=== PATIENT | female | born 1985 | race Caucasian/White ===

== ENCOUNTER 2018-04-14 22:46 | Emergency (ER) | payer OTHER ==
[~2018-04-14] VITALS: Ht 162.6 cm; Wt 77.1 kg
[~2018-04-14 22:46] MED LIST: ALBUTEROL2.5 MG/0.1 INH; CLARITIN10 MG PO; LORTAB 5 MG/5001 TA1 OR; PREDNISONE 20 M20 MG PO; PROAIR HFA8.5 GM INH; ZOFRAN ODT4 MG PO
[2018-04-14 23:42] VITALS: BP 111/88
== END 2018-04-14 23:43 | disposition home or self-care (01) ==
LOC: ER 22:46
DX: S93.491A Sprain of other ligament of right ankle, initial encounter (principal); J45.909 Unspecified asthma, uncomplicated; Z88.8 Allergy status to other drugs, medicaments and biological substances; X50.1XXA Overexertion from prolonged static or awkward postures, initial encounter; Y92.89 Other specified places as the place of occurrence of the external cause; Y93.01 Activity, walking, marching and hiking; Y99.8 Other external cause status

== ENCOUNTER 2019-03-09 15:25 | Inpatient (IN) | payer OTHER ==
[~2019-03-09] VITALS: Ht 162.6 cm; Wt 81.6 kg
[2019-03-09 15:30] VITALS: BP 142/91
[2019-03-09] MEDS ORDERED: XARELTO15 MG PO (15:34)
[2019-03-09 15:59] LABS: ABSOLUTE NEUTROPHILS 4.2 thou/uL (1.4-8.2); BASOPHILS 0.8 % (0.0-2.0); EOSINOPHILS 2.8 % (0.0-3.0); HEMATOCRIT 34.6 % (37.0-47.0); HEMOGLOBIN 11.5 gm/dL (12.0-15.0); LYMPHOCYTES 19.9 % (24.0-44.0); MCH 28.9 pg (26.0-34.0); MCHC 33.1 g/dL (28.0-37.0); MCV 87.3 fL (80.0-100.0); MONOCYTES 5.9 % (1.0-8.0); PLATELET COUNT 296 thou/uL (150-400); POLYS 70.6 % (36.0-66.0); RBC 3.96 mil/uL (4.20-5.00); RDW 14.9 % (10.5-14.5)
[2019-03-09 16:17] LABS: ANION GAP 9 mmol/L (7-16); BUN 10 mg/dL (7-18); CALCIUM 9.4 mg/dL (8.5-10.1); CHLORIDE 105 mmol/L (98-107); CO2 30 mmol/L (21-32); CREATININE 0.8 mg/dL (0.6-1.0); GLUCOSE 124 mg/dL (74-106); POTASSIUM 3.5 mmol/L (3.5-5.1); SODIUM 144 mmol/L (136-145)
[2019-03-09 16:27] LABS: ALBUMIN 3.6 g/dL (3.4-5.0); SGOT 15 U/L (15-37); SGPT 23 U/L (30-65); TOTAL BILIRUBIN 0.5 mg/dL (<0.1-1.0); TOTAL PROTEIN 7.3 g/dL (6.4-8.2); TROPONIN-I <0.06 ng/mL (<0.06)
[2019-03-09 17:32] LABS: INR 1.1
[2019-03-09 17:50] VITALS: BP 116/74
[2019-03-09 18:17] VITALS: BP 118/79
[2019-03-09 18:43] VITALS: BP 129/75
[2019-03-09] MEDS ORDERED: COLACE100 MG PO (20:37)
[2019-03-09] MEDS ORDERED: LORCET 5-325 M1 EACH PO (20:38)
--- NOTE | 2019-03-09 21:56 | EKG ---
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 : 1985 Requested By: Sandra Lim Order Number: [id number] MD: Jamir Sanchez Measurements Intervals [place] Rate: 100 P: 21 NH: 138 QRS: 16 QRSD: 90 T: 34 QT: 345 QTc: 445 Interpretive Statements Sinus tachycardia RSR' in V1 or V2, probably normal variant No previous ECG available for comparison Electronically Signed On 03-09-2019 21:56:14 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
[2019-03-09 23:53] VITALS: BP 117/67
[2019-03-10 05:31] VITALS: BP 101/59
[2019-03-10 07:18] VITALS: BP 100/58
--- NOTE | 2019-03-10 07:31 | NUR ---
PT ARRIVED TO UNIT AT 1900, PLACED ON TELEMETRY AND VS OBTAINED; IVF AND HEPARIN DRIP INFUSING. ADMISSION AND ASSESSMENT COMPLETED. PT DENIED CHEST PAIN OR SOB OVERNIGHT, SATTING WELL ON RA; DENIED PAIN OR TENDERNESS IN LEFT CALF AT SITE OF DVT. PT REPORTS HAVING A TUMMY TUCK AND BREAST REDUCTION W/ LIFT ON THE ; INCISION SITES ARE CARMEN, SUTURES PRESENT, NO ABNORMAL SWELLING, REDNESS, OR DISCHARGE NOTED. 2330 APTT DRAW CRITICAL HIGH, NOTIFIED OVERNIGHT FIRST COAT OPERATOR, AND REDUCED DRIP PER HEPARIN FLOWSHEET/PROTOCOL; REDRAW OF LAB AT 0600, RESULT WAS LOW; CO-SIGNED BOLUS AND INCREASE OF RATE PER PROTOCOL WITH DAY RN. NO OTHER CONCERNS, SHIFT REPORT GIVEN AT 0700.
[2019-03-10 15:10] VITALS: BP 120/62
--- NOTE | 2019-03-10 18:14 | NUR ---
ASSUMED PATIENT CARE AT 0700. ON HEPARIN GTT. C/O LLQ PAIN 06/17. WILL CHECK UA PER ORDER. NO SOB NOTED. SLOWLY TOWARDS POC GOALS.
[2019-03-10 19:28] LABS: URINE BILIRUBIN NEGATIVE (Negative); URINE BLOOD NEGATIVE (Negative); URINE CLARITY CLEAR; URINE COLOR YELLOW; URINE GLUCOSE-RANDOM* NEGATIVE (Negative); URINE KETONES NEGATIVE (Negative); URINE LEUKOCYTES-REFLEX NEGATIVE (Negative); URINE NITRITE-REFLEX NEGATIVE (Negative); URINE PROTEIN (DIPSTICK) NEGATIVE (Negative); URINE SPECIFIC GRAVITY <= 1.005 (1.005-1.035); URINE UROBILINOGEN 0.2 E.U./dl (0.2-1.0)
[2019-03-10 19:30] VITALS: BP 113/72
[2019-03-10 19:36] LABS: BACTERIA-REFLEX None Seen /HPF (None Seen); CASTS None Seen /LPF (None Seen); CRYSTALS None Seen /LPF (None Seen); SQUAMOUS 0-3 Few /LPF (0-3); URINE RBC None Seen /HPF (0-2); URINE WBC-REFLEX None Seen /HPF (0-5)
--- NOTE | 2019-03-11 03:38 | NUR ---
C/O mid abdominal pain that started yesterday she described as stabbing/sharp pain which is better now but it hurts more when she moves.Urine specimen sent to lab per order. Bilateral breast incision and abdominal incision approximated well and open to air. Cont. on heparin gtt. with no active bleeding noted and being titrated per protocol. Will continue to monitor.
[2019-03-11 04:36] VITALS: BP 107/61
[2019-03-11 07:36] VITALS: BP 109/59
--- NOTE | 2019-03-11 09:45 | NUR ---
Nutrition: Seen due to consult for diet instructions, re: recent surgery, developed clots. Admit: DVT, bilateral pulmonary emboli. On heparin currently. Met with pt at beside. She reports mention of possible warfarin, but not certain at this point if another anticoagulant med will be chosen. RD provided full extensive education on vitamin K food/drug interaction if warfarin is chosen. Pt likes raw spinach, brussel sprouts. RD explained role of med vs vitamin K and higher food sources of. Discussed general goal to limit to ~1/2 c/day or < 100 mcg/day. Pt consumes these sources regularly. Encouraged if consuming to be very mindful and consistent in PO intake and to not make large changes in amounts consumed. Pt verbalized understanding. Low risk otherwise.
--- NOTE | 2019-03-11 12:29 | NUR ---
PT STATES SHE HAS PAIN TO LLQ OF ABDOMEN...NPO FOR ABDOMINAL ULTRASOUND...
--- NOTE | 2019-03-11 12:50 | 2DMMODE ---
[facility] [address] [place] [address] 2 D/M-MODE ECHOCARDIOGRAM Name: CHARLIABHAY DANYEL Room #: 350-P ADM IN M.R.#: [id number] Admission: 03/09/19 Attend Phys: Jazmine Marion Discharge: Date of : 81 Report #: [id number] THIS REPORT FOR: //name// APPROVED REPORT Study performed: 03/11/2019 11:38:56 EXAM: Comprehensive 2D, Doppler, and color-flow Echocardiogram Patient Location: Bedside Room #: 350 Status: routine BSA: 1.87 HR: 77 bpm BP: 109/58 mmHg Other Information Study Quality: Technically Difficult Technically limited study due to patient unable to tolerate scanning pressure secondary to recent breast augmentation and tummy tuck. Indications Pulmonary Embolism 2D Dimensions RVDd: 28.99 mm IVSd: 8.65 (7-11mm) LVOT Diam: 19.16 (18-24mm) LVDd: 40.20 mm PWd: 9.75 (7-11mm) Ascending Ao: 24.14 (22-36mm) LVDs: 25.05 (25-40mm) Aortic Root: 25.46 mm IVC: 21.00 mm Volumes Left Atrial Volume (Systole) Single Plane 4CH: 41.27 mL Single Plane 2CH: 37.87 mL LA ESV Index: 22.00 mL/m2 Aortic Valve AoV Peak Mookie.: 1.15 m/s AO Peak Gr.: 5.31 mmHg LVOT Max P.87 mmHg LVOT Max V: 1.10 m/s RAHUL Vmax: 2.76 cm2 Mitral Valve E/A Ratio: 1.5 [facility] [address] [place] [address] 2 D/M-MODE ECHOCARDIOGRAM Name: AUGUSTINPATRICKABHAYGEORGE MONTAÑO Room #: 350-P [facility] IN [facility].#: [id number] Admission: 03/09/19 Attend Phys: Jazmine Marion Discharge: Date of : 81 Report #: [id number] MV Decel. Time: 165.05 ms MV E Max Mookie.: 1.15 m/s MV A Mookie.: 0.75 m/s MV PHT: 47.87 ms IVRT: 76.12 ms Pulmonary Valve PV Peak Mookie.: 1.16 m/s PV Peak Gr.: 5.44 mmHg Pulmonary Vein P Vein S: 0.63 m/s P Vein A: 0.28 m/s P Vein D: 0.43 m/s P Vein A Dur.: 90.0 msec P Vein S/D Ratio: 1.47 Tricuspid Valve RAP Estimate: 5.00 mmHg Left Ventricle The left ventricle is normal size. There is normal left ventricular wall thickness. The left ventricular systolic function is normal. The left ventricular ejection fraction is within the normal range. LVEF is 60%. The left ventricular diastolic function is normal. Right Ventricle The right ventricle is normal size. The right ventricular systolic function is normal. Atria The left atrium size is normal. The right atrium size is normal. Aortic Valve The aortic valve is normal in structure. No aortic regurgitation is present. There is no aortic valvular stenosis. Mitral Valve The mitral valve is normal in structure. There is no mitral valve regurgitation noted. No evidence of mitral valve stenosis. Tricuspid Valve The tricuspid valve is normal in structure. There is no tricuspid valve regurgitation noted. Unable to assess PA pressure. Pulmonic Valve Pulmonic valve is not well visualized. [facility] [address] [place] [address] 2 D/M-MODE ECHOCARDIOGRAM Name: ABHAY AUGUSTIN Room #: 350-P [facility] IN M.R.#: [id number] Admission: 03/09/19 Attend Phys: Jazmine Marion Discharge: Date of : 81 Report #: [id number] Great Vessels The aortic root is normal in size. IVC is normal in size and collapses >50% with inspiration. Pericardium There is no pericardial effusion. <Conclusion> 1. Normal echocardiogram with Doppler. Ejection fraction 60% 2. No pericardial effusion <ELECTRONICALLY SIGNED> By: Jamir Sanchez MD, FACC 03/11/19 1249 1249 1249 Jamir Sanchez MD, FACC /INF
--- NOTE | 2019-03-11 14:25 | NUR ---
INITIAL ASSESSMENT: HARJEET reviewed chart and spoke with nursing and attending physician. Pt was admitted from home due to bilateral pulmonary emboli. Pt with recent cosmetic surgery. Pt will need to be started on Eliquis lelo discharged. HARJEET met with pt at bedside. Introduced role of SW. Pt is alert/orientated x 4. Pt reports she lives at home with her family. Prior to admission, pt was independent with ADLs. No use of DME. No hx of services or post-acute placement. Pt does not have a PCP. Pt did schedule an appt with Dr. Gonzalez on 03/18 at 1100. Pt will be a new pt. HARJEET provided pt with Eliquis copay cards. Pt has not been on Eliquis in the past. HARJEET discussed filling Eliquis script in [facility]. Pt is agreeable. HARJEET faxed face sheet to [facility] for review. Pt has Free 30-day discount card and $10 copay card. HARJEET is following to assist as needed with discharge planning.
[2019-03-11 19:23] VITALS: BP 113/61
[2019-03-12 03:33] VITALS: BP 102/65
--- NOTE | 2019-03-12 04:40 | NUR ---
Pt. took a shower at HS. Left lower quad abdominal pain still persist and rated as 4/10 which has not changed from yesterday. Encouraged to call if it gets worst. Denies need for pain med at this time. at bedside. Cont. on heparin gtt. She refused blood draw this am. Offered if she wants it done later on and stated absolutely not and she's ready to go home. She verbalized frustration about not finding out what's causing pain on her abdomen and what are we going to do about it. Pt. informed to discuss this with her doctor today when rounding. She also is frustrated about being on heparin still and asked when is she going to be off of it. Informed her that there's a plan on switching her to po anticoagulant but until the doctor gives an order to do so then we have to wait. Pt. informed that she has the right to refuse and informed her also that lab draw is important when on heparin gtt. to determine therapeutic levels. Verbalized she understands all these but she's done. Asked if there's anything else we can help her with and stated it does not matter. Encouraged to call if there's anything else she needs.
[2019-03-12 07:36] VITALS: BP 100/51
[2019-03-12] MEDS ORDERED: ELIQUIS5 M1 PO (09:13)
[2019-03-12] MEDS ORDERED: XARELTO15 MG PO (09:22)
[2019-03-12 10:02] VITALS: BP 100/51
[2019-03-12 10:37] VITALS: BP 100/51
[2019-03-12 10:59] VITALS: BP 100/51
--- NOTE | 2019-03-12 14:31 | NUR ---
DISCHARGE NOTE: SW reviewed chart and spoke with nursing and attending physician. Pt was discharged home earlier today. SW was not able to meet with pt prior to discharge to discuss copay for Eliquis. Pt was provided with Eliquis discount cards yesterday. Pt has an appt to see Dr. Gonzalez next week. No SW needs identified. Case closed.
== END 2019-03-12 11:03 | disposition home or self-care (01) | DRG 299 ==
LOC: ER 15:25 → EROBS 17:15 → 3W 17:15 → ENTRNSPT 03-12 10:47 → EDTRNSPTSTS 03-12 10:50 → 3W 03-12 11:03
PROVIDERS: Emergency Medicine; ADMIT Hospitalist
DX: I82.442 Acute embolism and thrombosis of left tibial vein (principal); I26.99 Other pulmonary embolism without acute cor pulmonale; D68.59 Other primary thrombophilia; I82.452 Acute embolism and thrombosis of left peroneal vein; J45.909 Unspecified asthma, uncomplicated; M06.9 Rheumatoid arthritis, unspecified; S30.1XXA Contusion of abdominal wall, initial encounter; Z88.8 Allergy status to other drugs, medicaments and biological substances; Z79.899 Other long term (current) drug therapy; X58.XXXA Exposure to other specified factors, initial encounter; Y93.89 Activity, other specified; Y92.89 Other specified places as the place of occurrence of the external cause; Y99.8 Other external cause status
CPT/HCPCS: 10879